=== PATIENT | female | born 1935 | race Caucasian/White ===

== ENCOUNTER 2023-01-27 22:51 | Emergency (ER) | payer MEDICARE, BC ==
[2023-01-28 01:27] VITALS: BP 188/69; PULSE 72
== END 2023-01-28 01:20 | disposition home or self-care (01) ==
LOC: CC.ED 22:51
DX: S30.0XXA Contusion of lower back and pelvis, initial encounter (principal); E03.9 Hypothyroidism, unspecified; J44.9 Chronic obstructive pulmonary disease, unspecified; I10 Essential (primary) hypertension; M19.90 Unspecified osteoarthritis, unspecified site; E78.00 Pure hypercholesterolemia, unspecified; E11.9 Type 2 diabetes mellitus without complications; Z86.73 Personal history of transient ischemic attack (TIA), and cerebral infarction without residual deficits; Z91.040 Latex allergy status; Z88.5 Allergy status to narcotic agent; Z88.1 Allergy status to other antibiotic agents; Z91.048 Other nonmedicinal substance allergy status; W19.XXXA Unspecified fall, initial encounter
CPT/HCPCS: 73700-RT; 99284